=== PATIENT | female | born 1935 | race Caucasian/White ===

== ENCOUNTER → 2023-12-18 09:11 | Outpatient (REF) | payer MEDICARE, BC, SELFPAY ==
[2023-12-18 10:04] LABS: % Basophils 0.7 % (0-2); % Eosinophils 1.1 % (0-6); % Immature Granulocytes 0.3 % (0-0.5); % Lymphocytes 32.8 % (20.5-51.1); % Neutrophils 57.1 % (42.2-75.2); Absolute Eosinophils 0.1 10^3/uL (0-0.7); Absolute Monocytes 0.5 10^3/uL (0.1-0.6); Absolute Neutrophils 3.5 10^3/uL (1.4-6.5); Hematocrit 42.5 % (37.0-47.0); Hemoglobin 14.3 g/dL (12.0-16.0); Mean Corp Hgb Conc. 33.6 g/dL (33.0-37.0); Mean Corpuscular Hgb 31.1 pg (27.0-31.0); Mean Corpuscular Volume 92.4 fL (81.0-99.0); Mean Platelet Volume 8.9 fL (7.4-10.4); Nucleated Red Blood Cells % 0 %; Platelet Count 227 10^3/uL (130-400); Red Cell Dist. Width 12.9 % (11.5-14.5); White Blood Cell Count 6.1 10^3/uL (4.8-10.8)
[2023-12-18 11:06] LABS: ALT (SGPT) 16 U/L (0-35); AST (SGOT) 23 U/L (14-36); Albumin 4.4 g/dl (3.5-5.0); Alkaline Phosphatase 82 U/L (38-126); Blood Urea Nitrogen 20 mg/dl (7-17); Calcium 9.7 mg/dl (8.4-10.2); Carbon Dioxide 28 mmol/L (22-30); Chloride 102 mmol/L (98-107); Glucose 96 mg/dl (70-99); HDL Cholesterol 89 mg/dl; LDL Cholesterol, Calculated 49 mg/dl; Potassium 4.3 mmol/L (3.5-5.1); Sodium 137 mmol/L (135-145); Total Bilirubin 0.7 mg/dl (0.2-1.3); Total Cholesterol 155 mg/dl (50-199); Total Protein 6.7 g/dl (6.3-8.2); Triglyceride 87 mg/dl (10-149); Very Low Density Lipoprotein 17 mg/dl (0-30); eGFR > 60.00
[2023-12-18 11:12] LABS: TSH Reflex To Free T4 2.63 uIU/ml (0.47-4.68)
[2023-12-18 11:37] LABS: Glycohemoglobin (HgbA1c) 5.5 % (4.0-5.6)
== END ==
LOC: REG 09:11
PROVIDERS: ATTENDING PHYSICIAN Internal Medicine Cardiovascular Disease; FAMILY PHYSICIAN Family Medicine
DX: R53.83 Other fatigue (principal); I10 Essential (primary) hypertension; E78.2 Mixed hyperlipidemia; R73.01 Impaired fasting glucose; R00.2 Palpitations
CPT/HCPCS: 36415; 80053; 80061; 83036; 84443; 85025

== ENCOUNTER → 2024-01-29 10:10 | Outpatient (REF) | payer MEDICARE, BC, SELFPAY | LOC: RCS 10:10 | PROVIDERS: ATTENDING PHYSICIAN Internal Medicine Cardiovascular Disease; FAMILY PHYSICIAN Family Medicine | DX: R00.2 Palpitations (principal) | CPT/HCPCS: 93225; 93226 ==

== ENCOUNTER → 2024-03-11 13:51 | Outpatient (REF) | payer MEDICARE, BC, SELFPAY | LOC: RAD 13:51 | PROVIDERS: ATTENDING PHYSICIAN Physician Assistant Medical | DX: M79.604 Pain in right leg (principal) | CPT/HCPCS: 93971 ==

== ENCOUNTER 2024-07-03 08:12 | Inpatient (IN) | payer MEDICARE, BC, SELFPAY ==
[2024-06-10 13:21] VITALS: BMI 25.6
[2024-06-10 14:31] LABS: Hematocrit 40.4 % (37.0-47.0); Hemoglobin 13.7 g/dL (12.0-16.0); Mean Corp Hgb Conc. 33.9 g/dL (33.0-37.0); Mean Corpuscular Hgb 30.6 pg (27.0-31.0); Mean Corpuscular Volume 90.4 fL (81.0-99.0); Mean Platelet Volume 9.3 fL (7.4-10.4); Platelet Count 213 10^3/uL (130-400); Red Blood Cell Count 4.47 10^6/uL (4.20-5.40); Red Cell Dist. Width 12.3 % (11.5-14.5); White Blood Cell Count 7.6 10^3/uL (4.8-10.8)
[2024-06-10 14:45] LABS: ALT (SGPT) 17 U/L (0-35); AST (SGOT) 24 U/L (14-36); Albumin 4.4 g/dl (3.5-5.0); Alkaline Phosphatase 68 U/L (38-126); Blood Urea Nitrogen 20 mg/dl (7-17); Calcium 9.5 mg/dl (8.4-10.2); Carbon Dioxide 29 mmol/L (22-30); Chloride 99 mmol/L (98-107); Estimated Creatinine Clearance 40 ml/min; Glucose 66 mg/dl (70-99); Potassium 4.1 mmol/L (3.5-5.1); Sodium 139 mmol/L (135-145); Total Bilirubin 0.4 mg/dl (0.2-1.3); Total Protein 6.6 g/dl (6.3-8.2); eGFR > 60.00
[2024-06-11 07:34] LABS: Glycohemoglobin (HgbA1c) 5.4 % (4.0-5.6)
[2024-06-27 08:36] VITALS: BMI 25.6
[2024-06-30 08:28] VITALS: BMI 25.6
[2024-07-03] VITALS (12 sets, daily range): BP systolic 110–154; BP diastolic 55–84; PULSE 98; O2SAT 98
--- NOTE | 2024-07-03 07:50 | W.PN.ORTHO ---
Today's Communication / Plan
-
D/c when clinically stable.
Assessment
.
Distal Motor Intact: Yes
Dressing:
Clean, dry and intact.
Assessment:
R knee OA s/p R TKA w/ Dr Brar 07/03/24
DVT prophylaxis - ASA, b/l venous foot pumps
HTN - + parameters - monitor BP
PACs/PVCs w/ h/o palps - monitor on tele
HLD
Diverticulosis w/ h/o �itis
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
Macular degeneration
Daily alcohol � 1 drink reported per day
Plan
.
Surgery / Date: R TKA w/ Dr Brar 07/03/24
DVT Prophylaxis: Aspirin
Activity:
Out of bed.
PT/OT
Discharge Plan: Home w/ Outpatient PT
Subjective
.
.:
Patient resting comfortably in bed.
R knee pain currently well tolerated.
Denies any new significant complaints.
Vital Signs and Labs
.
Vital Signs and Labs:
Lab Results
06/10/24 13:19
06/10/24 13:19
Physical Exam
-
HEENT: No pallor, cyanosis, or jaundice. Throat clear.
NECK: Supple. No JVD.
RESPIRATORY: Lungs clear to auscultation.
CVS: S1, S2 normal. RRR.�
ABDOMEN: Soft, non-tender. No distension.
EXTREMITIES: Strength equal, no calf pain with palpation/dorsiflexion. Calves soft.
PROFESSOR OF SURGERY: AOx3. No focal deficits. fire prevention engineer grossly intact
[2024-07-03] MEDS: CELEBREX 200 MG PO (08:25)
[2024-07-03] MEDS: TYLENOL 650 MG PO ×4 (08:25→23:25)
[2024-07-03] MEDS: ROXICODONE 5 MG PO (12:10)
[2024-07-03] MEDS: NORMOSOL-R/PLASMALYTE-A 1000 IV (13:20)
--- NOTE | 2024-07-03 15:18 | CM ---
Patient seen bedside, initial assessment completed. Patient resides with her in a [place] bi-level home, no steps to enter, five wide steps to enter main level (bedroom, bathroom). Patient reports she has a walker and cane at home.
Patient reports she has support from her daughter and son in law. Patient denies VN or SNF history, reports she has a script for outpatient therapy, is scheduled to start therapy Sunday at [facility] in [place]. Patient
confirms PCP Dina Garza, pharmacy [facility], confirms prescription coverage. Patient denies insecurities at home. CM will continue to follow for all discharge planning needs.
Plan; home with , outpatient PT on Sunday.
[2024-07-03] MEDS: ANCEF 5 IV ×2 (16:39→23:24)
[2024-07-03] MEDS: PROTONIX 40 MG PO (16:39)
[2024-07-03] MEDS: ASPIRIN 325 MG PO (17:22)
[2024-07-03] MEDS: BACTROBAN 2% OINTMENT 1 APPLIC NASAL (20:15)
[2024-07-03] MEDS: COLACE 100 MG PO (20:15)
[2024-07-03] MEDS: SENOKOT 17.2 MG PO (20:15)
[2024-07-03] MEDS: DECADRON 4 MG PO (20:16)
[2024-07-03] MEDS: LIPITOR 20 MG PO (22:01)
[2024-07-04 03:02] VITALS: BP 132/62
[2024-07-04] MEDS: TYLENOL 650 MG PO ×3 (03:23→11:44)
[2024-07-04 07:16] VITALS: BP 142/66
[2024-07-04] MEDS: ASPIRIN 325 MG PO (08:19)
[2024-07-04] MEDS: CELEBREX 200 MG PO (08:19)
[2024-07-04] MEDS: PROTONIX 40 MG PO (08:19)
[2024-07-04] MEDS: SENOKOT 17.2 MG PO (08:20)
[2024-07-04] MEDS: BACTROBAN 2% OINTMENT 1 APPLIC NASAL (08:20)
[2024-07-04] MEDS: COLACE 100 MG PO (08:20)
[2024-07-04] MEDS: DECADRON 4 MG PO (08:20)
--- NOTE | 2024-07-04 09:19 | W.PN.ORTHO ---
Today's Communication / Plan
-
Await PT and OT recs.
Pt will need home care given recent circumstances.
D/c later today if remaining clinically stable.
Assessment
.
Distal Motor Intact: Yes
Dressing:
Dressing changed this AM. Currently clean, dry and intact.
Assessment:
R knee OA s/p R TKA w/ Dr Brar 07/03/24
DVT prophylaxis - ASA, b/l venous foot pumps
HTN - + parameters - BPs stable
PACs/PVCs w/ h/o palps - NSR w/ PACs/PVCs on tele - asymptomatic
HLD
Diverticulosis w/ h/o �itis
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
Macular degeneration
Daily alcohol � 1 drink reported per day
Plan
.
Surgery / Date: R TKA w/ Dr Brar 07/03/24
DVT Prophylaxis: Aspirin
Activity:
Out of bed.
PT/OT
Discharge Plan: Home w/ VN
Subjective
.
.:
Patient resting comfortably in bed.
R knee pain well controlled w/ minimal pain meds overnight.
Denies any new significant complaints.
Eager for potential d/c today.
Vital Signs and Labs
.
Vital Signs and Labs:
Lab Results
06/10/24 13:19
06/10/24 13:19
Temp Pulse Resp BP Pulse Ox
98.1 F 81 14 142/66 97
07/04/24 07:16 07/04/24 07:16 07/04/24 07:16 07/04/24 07:16 07/04/24 07:16
Non-invasive Hgb result: 11.3
Physical Exam
-
HEENT: No pallor, cyanosis, or jaundice. Throat clear.
NECK: Supple. No JVD.
RESPIRATORY: Lungs clear to auscultation.
CVS: S1, S2 normal. RRR.�
ABDOMEN: Soft, non-tender. No distension.
EXTREMITIES: Expected post-surgical R knee edema. Strength equal, no calf pain with palpation/dorsiflexion. Calves soft.
JUNIOR GRAPHIC DESIGNER: AOx3. No focal deficits. plaster machine operator grossly intact
[2024-07-04 09:25] VITALS: BP 133/78; PULSE 89; O2SAT 100
--- NOTE | 2024-07-04 10:05 | W.DS.TRANS ---
DC Summary - Composite Worker
-
Discharge Instructions:
Sleep Apnea Risk Intermediate
Discharge Diagnosis/Procedures R knee OA s/p R TKA w/ Dr Brar 07/03/24
Diet Regular
Activity As tolerated,With Walker
Driving Restrictions Not until seen by your Dr
Bathing Restrictions OK to Shower
Other Services PT,VN
Wound Care Dressing to be removed 1 week post-surgery.
Instructions:
Stand-Alone Forms: Total Hip/Knee Replacement D/C
Changes to Home Medications: Yes
Discharge Medications:
DC Medications w/original date entered in [facility]
atorvastatin 20 mg tablet 20 mg PO HS High Cholesterol 06/27/24
calcium 600 mg (as carbonate)-vitamin D3 10 mcg (400 unit) tablet (Calcium 600 + D(3)) 1 tab PO DAILY Supplement 06/27/24
urbhpmpm-ahe-gemho ac 400 mcg-calcium carb 500 mg-vit K1 20 mcg tablet (Women's 50 Plus Daily Formula) 1 tab PO DAILY Supplement 06/27/24
mupirocin 2 % topical ointment 1 applic topical BID Infection 06/27/24
omeprazole 20 mg tablet,delayed release 20 mg PO DAILY Gastrointestinal Issue 06/27/24
vit C 250 mg-vit E 90 mg-zinc 40 mg-copper 1 [id number]-[id number] capsule (PreserVision AREDS-2) 1 tab PO BID Supplement 06/27/24
acetaminophen 500 mg tablet (Tylenol Extra Strength) 1,000 mg (2 x 500 mg) PO Q6H #60 tabs 07/03/24
amlodipine 10 mg tablet 10 mg PO HS #1 tab 07/03/24
aspirin 325 mg tablet 325 mg PO DAILY #30 tabs 07/03/24
celecoxib 100 mg capsule (Celebrex) 100 mg PO BID #30 caps 07/03/24
dexamethasone 4 mg tablet 4 mg PO Q12H Anti-inflammatory #7 tabs 07/03/24
docusate sodium 100 mg capsule 100 mg PO BID #30 caps 07/03/24
ondansetron HCl 4 mg tablet 4 mg PO Q6H PRN nausea and vomiting #30 tabs 07/03/24
oxycodone 5 mg tablet 5 - 10 mg (1 - 2 x 5 mg) PO Q6H PRN moderate-severe pain #30 tabs 07/03/24
sennosides 8.6 mg tablet (Senna Laxative) 17.2 mg (2 x 8.6 mg) PO BID #30 tabs 07/03/24
Home Medication Changes
acetaminophen 500 mg tablet (Tylenol Extra Strength) 1,000 mg (2 x 500 mg) PO Q6H #60 tabs 07/03/24
aspirin 325 mg tablet 325 mg PO DAILY #30 tabs 07/03/24
celecoxib 100 mg capsule (Celebrex) 100 mg PO BID #30 caps 07/03/24
dexamethasone 4 mg tablet 4 mg PO Q12H Anti-inflammatory #7 tabs 07/03/24
docusate sodium 100 mg capsule 100 mg PO BID #30 caps 07/03/24
ondansetron HCl 4 mg tablet 4 mg PO Q6H PRN nausea and vomiting #30 tabs 07/03/24
oxycodone 5 mg tablet 5 - 10 mg (1 - 2 x 5 mg) PO Q6H PRN moderate-severe pain #30 tabs 07/03/24
sennosides 8.6 mg tablet (Senna Laxative) 17.2 mg (2 x 8.6 mg) PO BID #30 tabs 07/03/24
Pending Results: No
[2024-07-04 10:45] VITALS: BP 142/77; PULSE 87
--- NOTE | 2024-07-04 11:00 | CM ---
Pt for discharge today
Met with pt - PT/OT recs -
Discussed with pt - requested [facility]
TT sent to [facility] Liaison for home care needs
Discussed IMM
Plan - home with VN
[2024-07-04 11:23] VITALS: BP 142/77
--- NOTE | 2024-07-04 11:38 | VNURNOTE ---
Home Health Liaison met with patient at bedside to discuss [facility] nurse/therapy, visits, schedule and homebound status. Patient is agreeable and understands that visits at home will be 2-3 x per week to assess and teach medical management.
[facility] brochure provided with contact information. Patient is aware that [facility] will contact them for start of care in 1-2 days after discharge from .
[facility] referral completed in [facility].
== END 2024-07-04 13:51 | disposition home health service (06) | DRG 470 ==
LOC: 2 SOUTH 08:12
PROVIDERS: ADMITTING PHYSICIAN Orthopaedic Surgery; FAMILY PHYSICIAN Family Medicine; REFERRING PHYSICIAN Internal Medicine Cardiovascular Disease
PROC: 0SRC0J9 Replacement of Right Knee Joint with Synthetic Substitute, Cemented, Open Approach (ICD-10-PCS; 2024-07-03)
DX: M17.11 Unilateral primary osteoarthritis, right knee (principal); I10 Essential (primary) hypertension; I49.1 Atrial premature depolarization; I49.3 Ventricular premature depolarization; E78.2 Mixed hyperlipidemia; R26.2 Difficulty in walking, not elsewhere classified; Z96.82 Presence of neurostimulator; Z79.899 Other long term (current) drug therapy; Z87.891 Personal history of nicotine dependence
CPT/HCPCS: 36415; 73560; 80053; 83036; 85027; 87070; 97110; 97116; 97162; 97166; 97535; C1713; C1776

== ENCOUNTER → 2024-10-23 14:24 | Outpatient (REF) | payer MEDICARE, BC, SELFPAY | LOC: RAD 14:24 | PROVIDERS: ATTENDING PHYSICIAN Family Medicine | DX: R19.00 Intra-abdominal and pelvic swelling, mass and lump, unspecified site (principal); R10.32 Left lower quadrant pain | CPT/HCPCS: 74177; Q9967 ==

== ENCOUNTER → 2025-02-09 09:16 | Outpatient (REF) | payer MEDICARE, BC, SELFPAY ==
[2025-02-09 10:58] LABS: HDL Cholesterol 70 mg/dl; LDL Cholesterol, Calculated 69 mg/dl; Total Cholesterol 160 mg/dl (50-199); Triglyceride 106 mg/dl (10-149); Very Low Density Lipoprotein 21 mg/dl (0-30)
== END ==
LOC: REG 09:16
PROVIDERS: ATTENDING PHYSICIAN Family Medicine; OTHER PHYSICIAN Internal Medicine Cardiovascular Disease
DX: R91.1 Solitary pulmonary nodule (principal); Z00.00 Encounter for general adult medical examination without abnormal findings; I10 Essential (primary) hypertension; Z79.899 Other long term (current) drug therapy
CPT/HCPCS: 36415; 80061; 84443

== ENCOUNTER → 2025-04-21 13:53 | Outpatient (REF) | payer MEDICARE, BC, SELFPAY | LOC: RAD 13:53 | PROVIDERS: ATTENDING PHYSICIAN Family Medicine | DX: R91.1 Solitary pulmonary nodule (principal) | CPT/HCPCS: 71250 ==